=== PATIENT | male | born 1955 | race Caucasian/White ===

== ENCOUNTER 2017-02-08 10:25 | Inpatient (IN) | payer OTHER ==
[~2017-02-08] VITALS: Ht 175.3 cm; Wt 94.7 kg
--- NOTE | ~2017-02-08 | OR ---
PATIENT'S NAME: RIZWANA CUNNINGHAM [facility] AGE: 61 Y [address] ROOM: [place] [address] LOCATION: GPCU ADMIT DATE: 02/08/2017 OR/Procedure Report DISCHARGE DATE: FAMILY PHYSICIAN: PHYSICIAN, UNKNOWN ATTENDING PHYSICIAN: ANJUM WYNNE SURGEON: Vickey Teran MD ROBOT PROGRAMMER: DATE OF PROCEDURE: 02/08/2017 PROCEDURES: 1. Insertion of central venous catheter. 2. Insertion of an arterial line. DESCRIPTION OF PROCEDURE: After a brief time-out was completed verifying the correct patient, procedure, and site, the patient was placed in dependent position appropriate for central line placement. The patient's right neck was prepped and draped in the usual sterile fashion. 1 mL of 1% lidocaine was used to anesthetize the surrounding skin. Using the Seldinger technique and under real-time ultrasound guidance, a 9-Upper Sorbian 10 cm catheter was introduced into the internal jugular vein. The guidewire then was removed. Each lumen of the catheter was evacuated from air and then flushed with sterile saline. The catheter then was sutured into place and a sterile Tegaderm was applied. The patient tolerated the procedure well. There were no procedural complications. Next, the patient's left wrist prepped and draped in the usual sterile fashion. 1 mL of 1% lidocaine used to anesthetize the surrounding skin. Using a 20-gauge Arrow catheter used to find the left radial artery. Catheter was then floated over the guidewire. The guidewire then was removed. A pulsatile waveform then was ensued on the monitor. Catheter then was sutured into place and a Tegaderm then was applied. Pulses distal to the insertion of the catheter were checked and found to be adequate. The patient tolerated the procedure well. There were no procedural complications. MD JAYANT MACIEL/kashmirl /[id number] d: 02/13/171939 t: 02/21/171706, OPERATIVE SUMMARY
--- NOTE | ~2017-02-08 | CATH ---
Cardiac Diagnostic Report Demographics Patient Name OCTAVIO GREGORIO Gender Male Date of 1955 Age 61 year(s) Patient Number [id number] Date of Study 02/08/2017 Visit Number [id number] Room Number G6[address] [place] [id number] Ht 177.8 cm Wt 81.65 kg Referring [facility] Primary Physician Physician Michelle CABRAL Performing [facility] Secondary Physician Physician Michelle CABRAL Diagnostic [facility] Assisting Physician Physician Michelle CABRAL Interventional Physician Employment Advisor Physician Findings and Conclusions Diagnostic Findings and Conclusion 1. Obstructive triple vessel CAD, calcified vessels a. Prox RCA 80%, mid RCA aneurysmal, Mid RCA 90%. b. proximal Cx, grade 4 thrombus causing 90% stenosis with MARQUEZ III flow OM 1 small vessel, ostium 90%, mid 95%, distal OM after aneurysmal distal Cx segment has focal 80% stenosis. c. Small LAD system, appears completely occluded in the distal portion, Diag 1 and Diag 2 are diffusely diseased with 90% stenosis proximally. At the end of the procedure patient reported he did not have any chest pain. Diagnostic Recommendations CT Surgery consult to see if we can do CABG today, given STEMI presentation. Pt is hemodynamically stable. continue heparin, ntg drip. Start integrillin drip no bolus. Admit to ICU while waiting for CABG. Stat Echo, carotids and vein mapping. Procedure Description The patient was brought to the diagnostic cardiac catheterization-EP laboratory by emergency personal. Physician deemed procedure as EMERGENT. The planned puncture-incision site(s) were shaved and prepped with ChloraPrep and draped in the usual sterile manner. Conscious sedation, supplemental oxygen, and pain control medications were delivered by a registered nurse under physician guidance. Surface ECG rhythm, blood pressure measurement, and pulse oximetry were monitored throughout the procedure. Arterial access. The access site was infiltrated with lidocaine. The vessel was entered with the Seldinger technique. A sheath was advanced into the vessel and used for catheter placement. Selective right coronary angiography. A catheter was advanced into the right coronary vessel ostium under fluoroscopic guidance. Contrast was injected by hand. Images were obtained in multiple projections. Selective left coronary angiography. A catheter was advanced into the left coronary vessel ostium under Fluoroscopic guidance. Contrast was injected by hand. Images were obtained in multiple projections. Arterial artery hemostasis was achieved. The patient was transferred to a regular nursing floor via cart accompanied by a nurse. The patient left the laboratory in stable condition. Diagnostic Cath Status: Emergency Procedure Procedure Type Diagnostic procedure:Angiography:, Coronary Angios Indications: Acute IL. Angiographic Findings Dominance: Right Cardiac Arteries and Lesion Findings LMCA: Normal (0% Stenosis). LAD: Small LAD system, appears completely occluded in the distal portion, Diag 1 and Diag 2 are diffusely diseased with 90% stenosis proximally. Lesion on 1st Diag: Proximal subsection.80% stenosis .Bifurcation lesion. Lesion on 2nd Diag: Proximal subsection.80% stenosis .Bifurcation lesion. Lesion on Mid LAD: Mid subsection.80% stenosis . Lesion on Prox LAD: Ostial.90% stenosis . LCx: proximal Cx, grade 4 thrombus causing 90% stenosis with MARQUEZ III flow OM 1 small vessel, ostium 90%, mid 95% Distal OM after aneurysmal segment has 80% focal stenosis. Lesion on Prox CX: Proximal subsection.90% stenosis .Culprit lesion. Lesion on Prox CX: Mid subsection.30% stenosis . RCA: Lesion on Prox RCA: Ostial.80% stenosis . Lesion on Mid RCA: Mid subsection.90% stenosis . Coronary Tree Procedure Data Procedure Date Date: 02/08/2017Start: 11:14 AMEnd: 12:29 PM Entry Locations - Retrograde Percutaneous access was performed through the Right Radial artery (Primary location). A 6 Fr sheath was inserted. Hemostasis was successfully obtained using Mechanical Compression. Closure Comments: R Namrata - 12mL's by Luz Lauren. Procedure Medications Order and Administration + + + + + !Time !Medication !Dosage !Route ! + + + + + !02/08/2017 11:13 AM !Versed !1 mg !I.V. ! + + + + + !02/08/2017 11:14 AM !Fentanyl !50 mcg !I.V. ! + + + + + !02/08/2017 11:14 AM !Heparin (ACC_3) ! !I.V. drip ! + + + + + !02/08/2017 11:18 AM !Radial Verapamil !2.5 mg !I.A. ! + + + + + !02/08/2017 11:25 AM !Heparin (ACC_3) !3000 units !I.V. bolus ! + + + + + !02/08/2017 11:26 AM !Heparin (ACC_3) !1000 units/hr !I.V. drip ! + + + + + !02/08/2017 11:26 AM !0.9% NaCl !100 ml/hr !I.V. drip ! + + + + + !02/08/2017 11:30 AM !Nitroglycerin !20 mcg/min !I.V. drip ! + + + + + !02/08/2017 11:49 AM !Nitroglycerin !30 mcg/min !I.V. drip ! + + + + + Devices Used - A5 Fr. BS JR 4 Diag. Catheterwas used for:Right coronary angiography. - A6 Fr. EBU 3.5 Guide Catheterwas used for:Left coronary angiography. - A5 Fr. BS Angled Pigtail Diag. Catheterwas used for:LV Pressures.Unable to cannulate the vessel. Contrast Material - Isovue 15306 ml Fluoroscopy Time: Diagnostic: 5:54 minutes. Total: 5:54 minutes. Fluoroscopy Dose: Diagnostic: 931 mGy. Total: 931 mGy. Estimated Blood Loss: 10 ml. Medical History Performed Procedures and Imaging Results - No ACC stress or imaging studies were performed. Allergies - No known allergies. Risk Factors The patient risk factors include:hypertension, last creatinine: 0.8 mg/dl, creatinine clearance: 113.4 ml/min and Current/Recent(w/in 1 year) tobacco use. Admission Data Admission Date: 02/08/2017 Admission Time: 11:00 AM Admit Source: [facility] Insurance Payors: None. Admission Medications + +------+-----+---------+---------+ + + !Medication !Dosage!Times!Last !Last !Administered !Comments ! ! ! !Per !Delivery !Delivery ! ! ! ! ! !Day !Date !Time ! ! ! + +------+-----+---------+---------+ + + !Unfractionated ! ! ! ! !Yes ! ! !Heparin (any) ! ! ! ! ! ! ! + +------+-----+---------+---------+ + + !Aspirin (any) ! ! ! ! !Yes ! ! + +------+-----+---------+---------+ + + Clinical Evaluation Leading to Procedure - The patient's CAD presentation was assessed as: STEMI.The symptom onset was first noted on 02/08/2017 09:00 AM(time was estimated). - The patient's anginal syndrome during the past two weeks was assessed as: Class IV according to the [place] Cardiovascular Society Classification System (CCS). Hemodynamics Condition: Rest O2 Consumption: Estimated: 218.99Heart Rate: 49 bpm Pressures (mmHg) +-----+ + !Site !Pressure ! +-----+ + !AO !163/88 (120) ! +-----+ + Shunts Oxygen Values O2 Capacity 204 O2 Consumption 218.99 Signatures dtt: MICHELLE WYNNE dtd: 02/08/17 1114 Physician Self Edit
--- NOTE | ~2017-02-08 | HP ---
[facility] AGE: 61 Y [address] ROOM: [address] [place] [id number] LOCATION: [facility] ADMIT DATE: 02/08/2017 History & Physical DISCHARGE DATE: FAMILY PHYSICIAN: PHYSICIAN, UNKNOWN ATTENDING PHYSICIAN: MICHELLE WYNNE DATE OF SERVICE: HISTORY OF PRESENT ILLNESS: This is a 61-year-old male who experienced burning chest pain followed by intense increasing chest pain and chest pressure while at work this morning. He also had nausea and vomiting, and his coworkers described him as pale and diaphoretic. Due to these symptoms, he was taken emergently to the [facility] where he was found to be having an ST-elevation myocardial infarction per EKG evaluation. The patient was then subsequently transferred to [facility] for higher level of care and planned emergent transfer to the catheterization suite by Dr. Michelle Wynne for heart catheterization. At the time of this dictation, the patient is currently post catheterization and is in need of a coronary artery bypass grafting due to triple-vessel disease. Full review of the patient's history shows that he has been having increased complaints of heartburn type chest pressure over the last few months. He has also had increased complaints of fatigue and dyspnea on exertion. His past medical history includes hypertension, which he follows a primary care provider in [place] for. He denies any other medical history and states his blood pressure is controlled with a blood pressure pill and a water pill. No noted family history of heart disease other than his mother needing a defibrillator. At the time of this dictation, he is resting comfortably in bed on heparin drip and nitroglycerin and has very mild complaints of chest pain. He is undergoing imaging for pre- CABG evaluation. PAST MEDICAL HISTORY: As listed in the HPI as well as including hypertension and heartburn. PAST SURGICAL HISTORY: 1. Appendectomy. 2. Right rotator cuff repair. 3. Vasectomy. 4. Tonsillectomy. 5. Umbilical hernia repair. FAMILY HISTORY: The patient's mother had diabetes. He is unsure of his father's health history, but he is still alive at the age of 90. [facility] 61 Y [address] ROOM: [address] [place], [place] [address] LOCATION: [facility] ADMIT DATE: 02/08/2017 History & Physical DISCHARGE DATE: FAMILY PHYSICIAN: PHYSICIAN, UNKNOWN ATTENDING PHYSICIAN: MICHELLE WYNNE SOCIAL HISTORY: The patient is a current daily smoker. He has smoked 1 pack per day for the last 48 years. He also admits to alcohol use throughout the week and states "drinks increased if I had a bad day at work." He denies illicit drug use. HOME MEDICATIONS: Currently being compiled by nursing staff by checking with pharmacies. The patient states he takes a "blood pressure pill and a water pill." MEDICATION ALLERGIES: No known medication allergies. REVIEW OF SYSTEMS: Pertinent positive review of systems are listed in the HPI. All other review of systems evaluated and negative. He denies recent illness or fever or chills. He also denies headache, changes in vision, or changes in bowel or bladder patterns. PHYSICAL EXAMINATION: VITAL SIGNS: Afebrile. Pulse 62, respirations 16, blood pressure 151/93, and O2 saturation 97% on 2 L nasal cannula. The patient weighs 98.2 kg. SKIN: [place], warm, and dry. EYES: Sclerae clear. No xanthelasmas. ENT: Oral mucosa is pink and moist. No jugular venous distention or carotid bruits. CHEST: Respirations are even and unlabored. LUNGS: Clear to auscultation. HEART: Regular rate and rhythm. Normal S1 and S2. ABDOMEN: Soft and nontender. MUSCULOSKELETAL: Equal muscle strength to upper and lower extremities bilaterally against resistance. EXTREMITIES: Peripheral pulses palpable. No clubbing, cyanosis, or edema. PSYCHIATRIC: Alert and oriented. Mood and affect are appropriate. IMPRESSION AND PLAN: Per Dr. Michelle Wynne: 1. Acute inferior and anterior ST-elevation myocardial infarction. 2. Triple-vessel disease. 3. Proximal circumflex 90%, ostial right coronary artery 80%, mid right coronary artery 90% and aneurysmal, and normal left main with a diagonal 1 of 80% and a diagonal 2 of 80%. Proximal circumflex of 30%. Mid left anterior descending 80%, small left anterior descending. Overall aneurysmal right coronary artery and circumflex with ST-elevation myocardial infarction culprit being circumflex artery. There was also notation of calcified vessels. PATIENT'S NAME: RIZWANA CUNNINGHAM [facility] AGE: 61 Y [address] ROOM: G6[facility] [place], [place] [address] LOCATION: [facility] ADMIT DATE: 02/08/2017 History & Physical DISCHARGE DATE: FAMILY PHYSICIAN: PHYSICIAN, UNKNOWN ATTENDING PHYSICIAN: MICHELLE WYNNE 4. We will emergently consult Cardiothoracic Surgery and hopefully be able to undergo coronary artery bypass grafting today. We will do preoperative evaluation with an echocardiogram to fully evaluate ejection fraction as well as look for wall motion or valvular abnormalities. We will check carotids and vein mapping as well as typing and crossing the patient for blood. We will also consult the Hospitalist Service to assist with medical management. We will continue to monitor, evaluate, and treat as appropriate. Thank you for allowing [facility] to interact in the care of this patient. SARA KILLIAN APRN FOR MD SAMAN JOHNSON/noy /[id number] D: 511 T: 515 HISTORY & PHYSICAL
--- NOTE | ~2017-02-08 | ENPV ---
Vascular Lower Extremity Vein Mapping Procedure Demographics Patient Name RIZWANA CUNNINGHAM Date of Study 02/08/2017 Patient Number [id number] Gender Male Date of 1955 Age 61 Visit Number [id number] Height 70 Accession Number [id number] Weight 180 Referring Kurt Lebron DO Interpreting Jose L Abrams MD Physician Physician Physician Ordering Kurt Lebron Wood Craftsman Physician DO Imposer Velasquez Jain RVT Elytoby Ibarrae RDCS, RVT Conclusions Summary Adequate veins bilaterally. Procedure Type of Study: Veins:Lower Extremity Vein Mapping, Vein Mapping. Indications for Study:Pre-op CABG. Allergies - No known allergies. Patient Status:Routine. Study Location:Inpatient Portable. Technical Quality:Adequate visualization. Risk Factors - The patient's risk factor(s) include: arterial hypertension. - The patient has a current/recent (within 1 year) tobacco history. - The patient's last creatinine was 0.8 mg/dl. Velocities are measured in cm/s ; Diameters are measured in cm + ++--------++--------+ !Superficial - Great Saphenous Vein !!Right !!Left ! + ++--------++--------+ !Location !!Diameter!!Diameter! + ++--------++--------+ !GSV High Thigh !!0.37 !!0.64 ! + ++--------++--------+ !GSV Mid Thigh !!0.32 !!0.41 ! + ++--------++--------+ !GSV Low Thigh !!0.3 !!0.31 ! + ++--------++--------+ !GSV Knee !!0.24 !!0.29 ! + ++--------++--------+ !GSV High Calf !!0.21 !!0.26 ! + ++--------++--------+ !GSV Mid Calf !!0.18 !!0.23 ! + ++--------++--------+ !GSV Low Calf !!0.23 !!0.26 ! + ++--------++--------+ !GSV Ankle !!0.23 !!0.17 ! + ++--------++--------+ Signature dtt: SHAILESH RICHEY dtd: 02/08/17 1413 Physician Self Edit
--- NOTE | ~2017-02-08 | DS ---
PATIENT'S NAME: RIZWANA CUNNINGHAM [facility] AGE: 61 Y [address] ROOM: [address] [place], [place] [address] LOCATION: GPCU ADMIT DATE: 02/08/2017 Discharge Summary DISCHARGE DATE: 02/14/2017 FAMILY PHYSICIAN: Physician, Unknown ATTENDING PHYSICIAN: Michelle Lee HISTORY OF PRESENT ILLNESS AND HOSPITAL COURSE: The patient is a 61-year-old, white male, whom on 02/08/2017 presented to the [place] [facility] as a delayed presentation after having chest pain, nearly all day long. Friends finely encourage him. Once at the [facility], he was ruled as a STEMI and transferred to [facility] for a higher level of care and for emergent cardiac catheterization secondary to ongoing chest pain. The patient was seen by Dr. Lee with findings of acute inferior and anterior ST elevation myocardial infarction, triple-vessel disease, consisting of a proximal circumflex at 90%, ostial right coronary artery at 80%, and mid right coronary artery occlusion at 90% which was also an aneurysmal and a diagonal #1 of 80%, a second diagonal of 80%, and a mid left anterior descending artery at 80%. The patient continued to have chest pain following the cardiac catheterization procedure. He went emergently to the OR with Dr. Boggs for surgical revascularization consisting of an emergent coronary artery bypass grafting x3 vessels with the left internal mammary artery bypass to the LAD, reverse saphenous vein graft to the posterior and descending artery, reverse saphenous vein graft to the obtuse marginal #3, and a reverse saphenous vein graft sequential from OM #1 to OM #2. The patient tolerated the procedure without complication. Following the surgery, he was transferred to the ICU. He did extubate the following morning. He did have a couple of critical ABGs following surgery. Pain control was an issue initially for him. This was corrected. Shortly thereafter, he was extubated without complication. His electrolytes were corrected postoperatively. He was found stable to transfer to PCU on 02/10/2017. His mediastinal chest tubes and pacemaking wires were discontinued. His Carrasco was maintained for accurate I and O. Eventually, Carrasco was discontinued. The patient had no healing complications postoperatively. He worked with PT/OT for strengthening purposes. There was no postoperative atrial fibrillation. Pleural chest tubes were removed. There was no residual pneumothorax or fluid on the followup chest x-ray. The patient was found stable then to discharge to home on 02/13/2017. Care Management worked with the patient and his for their desires for care at the time of discharge. They did not care for any Home Health Care Services. DISCHARGE ORDERS: Include: A cardiac prudent diet. Activity levels as per the open heart surgery discharge summary sheet, which require no pulling, pushing, or lifting greater than 10 pounds for at least 6 weeks or until 03/22/2017. The patient may shower. He is to work with cardiac rehabilitation for outpatient therapy within a couple of weeks' time. He is to follow up with Dr. Michelle Lee in 2 weeks as well as Dr. Boggs in PATIENT'S NAME: RIZWANA CUNNINGHAM [facility] AGE: 61 Y [address] ROOM: [place] [address] [facility] AD[facility] DATE: 02/08/2017 Discharge Summary DISCHARGE DATE: 02/14/2017 FAMILY PHYSICIAN: Physician, Unknown ATTENDING PHYSICIAN: Michelle Lee 2 weeks. DISCHARGE MEDICATIONS: Include: 1. Hydrochlorothiazide 25 mg daily. 2. Lisinopril 5 mg b.i.d. 3. Multivitamin daily. 4. Amiodarone 400 mg twice a day for 3 days, and 200 mg of amiodarone twice daily thereafter until gone. 5. Aspirin 81 mg daily. 6. Lipitor 40 mg at bedtime. 7. Coreg 12.5 mg twice a day. 8. Plavix 75 mg daily. 9. Colace 100 mg twice a day. 10. Polyethylene glycol 17 g at bedtime. 11. Potassium chloride 30 mEq twice a day. 12. Douglas 5/325, 1 to 2 every 4-6 hours as needed. 13. Mucinex 1200 mg twice a day p.r.n. 14. Bumex 2 mg daily. CONDITION ON DISCHARGE: There was much discussion with regard to the discharge orders. The patient and verbalized understanding of the discharge orders. The patient was discharged to home in stable condition. LEXX LORENZO APRN FOR CONSUELO Vi BOGGS DO DLQ/modl /[id number] d: 03/05/17 1320 t: 03/05/17 1453, DISCHARGE SUMMARY
--- NOTE | ~2017-02-08 | OR ---
PATIENT'S NAME: RIZWANA SLATER [facility] AGE: 61 Y [address] ROOM: [address] [place], [place] [address] LOCATION: GPCU ADMIT DATE: 02/08/2017 OR/Procedure Report DISCHARGE DATE: FAMILY PHYSICIAN: PHYSICIAN, UNKNOWN ATTENDING PHYSICIAN: ANJUM WYNNE SURGEON: Felipe Hicks DO BREAKFAST HOSTESS: DATE OF PROCEDURE: 02/08/2017 PREOPERATIVE DIAGNOSIS: Status post code ST-segment elevation myocardial infarction with ongoing chest pain. POSTOPERATIVE DIAGNOSIS: Status post code ST-segment elevation myocardial infarction with ongoing chest pain. PROCEDURE PERFORMED: Emergent coronary artery bypass grafting x5 with left internal mammary artery bypass to the LAD, reverse saphenous vein graft to the posterior and descending artery, reverse saphenous vein graft obtuse marginal #3, reverse saphenous vein graft sequential from OM1 to OM2. BRIEF HISTORY: Mr. Slater is a 61-year-old white male, who admitted to the emergency department with an ST-segment elevation myocardial infarction and transferred emergently to [facility]. He was taken to the coronary labor relations consultant today and found to have severe multivessel coronary artery disease with ongoing chest pain. He has been brought to the operative suite in an emergent fashion for revascularization. Informed consent has been obtained through his as he has received sedation in the labor relations consultant. He is sterilely prepped and draped in usual fashion for sternotomy with lower extremity vein harvest. The sternal incision was made and the sternum was divided in the midline. Ostene and electrocautery were used for hemostasis along the narrow and sternal edges and concurrently to this, the saphenous vein was harvested endoscopically from the lower extremities. Hemodynamically, he was stable and we elected to harvest the internal mammary artery. It was identified and harvested utilizing surgical clips and electrocautery. Prior to its division, the patient was fully heparinized. The mammary was then divided and prepared for bypass. Mammary retractor was removed and a sternal retractor was placed. The pericardium was opened. Pericardial wall was created. Cannulation sutures placed in the ascending aorta and right atrium for bypass and cardioplegia cannulas. The patient was cannulated and connected to the bypass pump without difficulty. The vein was then prepared for bypass. Cardiopulmonary bypass was now initiated and a crossclamp applied. Cardioplegia was now initiated via the antegrade and then retrograde systems and topical cold saline will also be used. The heart arrested without difficulty and we identified the posterior lateral and posterior descending arteries. The posterior descending artery was opened and side vein graft PATIENT'S NAME: RIZWANA SLATER [facility] AGE: 61 Y [address] ROOM: [id number] [place], [place] [address] [facility] ADMIT DATE: 02/08/2017 OR/Procedure Report DISCHARGE DATE: FAMILY PHYSICIAN: PHYSICIAN, UNKNOWN ATTENDING PHYSICIAN: ANJUM WYNNE anastomosed to this with 7-0 Prolene in end-to-side fashion. It was sized appropriate and connected to the cardioplegia system. A 500 mL of vein graft retrograde cardioplegia were given and this was done after each venous distal anastomosis. Similar venous distal anastomosis were then created to the obtuse marginal #3 and then the obtuse marginal #2. The obtuse marginal #2 graft was then sequential to the obtuse marginal #1, and then the left internal mammary artery was anastomosed with the left anterior descending artery, again in end-to-side fashion with 7-0 Prolene. Once this was completed, the bulldogs removed from the anastomosis giving good distal flow. Crossclamp was removed and a partial occlusion clamp applied. Warm blood was now initiated via the vein grafts and the retrograde cannula and we performed our proximal anastomosis utilizing 4 mm punch and 6-0 Prolene and partial occlusion clamping. With these completed, the partial occlusion clamp was now removed, vein grafts de-aired, bulldog was removed, and distal flow given. Distal sites were hemostatic. Proximal sites were hemostatic and we removed the retrograde cannula, placed 2 atria and 1 ventricular temporary pacemaking wires, initiated ventilations, and then weaned from cardiopulmonary bypass without difficulty. The venous cannula was now removed. Appropriate volume returned from the pump to the patient. The ascending aortic cannula was now removed. Protamine was given. Then, we placed a 3 chest tubes, 1 left pleural, 1 posterior pericardial, 1 anterior mediastinal. We approximated the sternum with a ZipFix system, irrigated the soft tissues again and closed these in a layered fashion. All sponge, instrument, and needle counts were correct. The patient was transferred to the intensive care unit in stable condition. DO POLA ESCOBAR/noy /[id number] d: 02/13/17 1527 t: 02/14/17 0853, OPERATIVE SUMMARY
--- NOTE | ~2017-02-08 | CON ---
PATIENT'S NAME: RIZWANA CUNNINGHAM [facility] AGE: 61 Y [address] ROOM: [place] [address] LOCATION: [facility] ADMIT DATE: 02/08/2017 Consultation DISCHARGE DATE: FAMILY PHYSICIAN: PHYSICIAN, UNKNOWN ATTENDING PHYSICIAN: ANJUM WYNNE DATE OF CONSULTATION: 02/08/2017 REFERRING PHYSICIAN: Rodri David MD CONSULTATION NOTE CHIEF COMPLAINT/REASON FOR CONSULTATION: Chest pain. HISTORY OF PRESENT ILLNESS: A 61-year-old gentleman with a past medical history of essential hypertension as well as one pack per day life long smoking, presented to [facility] with chest pain which he described as burning in the chest, which started about 0900 hours this morning when he was lifting a 20 feet long pipe at work associated with severe diaphoresis, anxiety, and some shortness of breath. He never had this kind of symptoms before. On further inquiry, he denies having any PND, dyspnea, or orthopnea. He denied any dizziness, any trouble with the eyes, any trouble swallowing, any abdominal pain, constipation, diarrhea, or burning on urination. REVIEW OF SYSTEMS: All other systems reviewed and were negative except what is mentioned in the HPI. PAST MEDICAL HISTORY: 1. Essential hypertension. 2. Tobacco abuse. ALLERGIES: NO KNOWN DRUG ALLERGIES. MEDICATIONS: Please see MAR. FAMILY HISTORY: Family history is significant for diabetes in mother. SOCIAL HISTORY: One pack per day smoker since the age of 13. PATIENT'S NAME: RIZWANA CUNNINGHAM [facility] AGE: 61 Y [address] ROOM: [place] [address] LOCATION: [facility] ADMIT DATE: 02/08/2017 Consultation DISCHARGE DATE: FAMILY PHYSICIAN: PHYSICIAN, UNKNOWN ATTENDING PHYSICIAN: ANJUM WYNNE PHYSICAL EXAMINATION: VITAL SIGNS: 160/88, 72, 16, and afebrile. GENERAL: In no acute distress. Alert and oriented x3. HEENT: Head; atraumatic and normocephalic. Eyes; nonicteric. No pallor. Oropharynx; dry mucous membranes. CARDIOVASCULAR: S1 and S2. No murmurs, gallops, or rubs. LUNGS: Clear to auscultation bilaterally. ABDOMEN: Soft, nontender, and nondistended. Bowel sounds present. EXTREMITIES: No clubbing, cyanosis, or edema. PSYCHIATRIC: Normal affect, mood, and speech. NEUROLOGIC: Cranial nerves 2 through 12 intact. No motor or sensory deficits. MUSCULOSKELETAL: No muscle tenderness or swelling noted. IMAGING STUDIES: EKG at the [facility] was done which showed diffuse ST elevation in the anterior as well as inferior leads. His rest of the laboratory work which includes the CBC and a chemical panel were largely unremarkable. He was taken to the catheterization lab directly here at [facility] as a STEMI code. He was found to have severe multi-vessel disease and Cardiothoracic Surgery was consulted. ASSESSMENT AND PLAN: 1. ST-elevation myocardial infarction. 2. Coronary artery disease. 3. Essential hypertension. 4. Tobacco abuse. Plan: The patient is going to be seen by Cardiothoracic Surgery with the coronary artery bypass grafting to be done likely today. He is currently chest pain-free. Aspirin, beta rashi, and statin are managed by Cardiology. We will recommend getting a new lipid profile as well as Hb A1c. We will follow along this patient in the ICU with Cardiothoracic Surgery and Cardiology. Thank you for allowing us in taking care of this patient. MD CYNTHIA ISABEL/noy /[id number] d: 02/08/171928 t: 02/09/17 1705, CONSULTATION REPORT
[2017-02-08 13:57] LABS: BASOPHIL # 0.1 K/uL (0.0-0.2); BASOPHIL % 0.4 %; EOSINOPHIL % 0.3 %; HEMATOCRIT 40.8 % (37.0-53.0); HEMOGLOBIN 13.9 g/dL (11.0-16.0); IMMATURE GRANULOCYTE # 0.1 K/uL (0.0-0.3); IMMATURE GRANULOCYTE % 0.5 %; LYMPHOCYTE # 2.1 K/uL (0.8-4.0); LYMPHOCYTE % 17.6 %; MCH 32.4 pg (27.0-34.0); MCHC 34.1 gm/dL (32.0-36.5); MCV 95.1 fl (83.0-98.0); MONOCYTE # 0.6 K/uL (0.0-1.0); MONOCYTE % 4.8 %; MPV 9.7 fl (9.4-12.4); NEUTROPHIL # (ANC) 9.1 K/uL (1.4-9.0); NEUTROPHIL % 76.4 %; NRBC % 0 /100WBC (0-0.00); PLATELET COUNT 290 K/uL (150-450); RBC 4.29 M/uL (3.50-5.50); RDW-CV 12.2 % (11.9-14.6)
[2017-02-08 13:58] LABS: BICARBONATE 22.5 mmol/L (18.0-23.0); PCO2 37 mmHg (35-45); PO2 98 mmHg (80-90)
--- NOTE | 2017-02-08 14:02 | NUR ---
Patient is 61 yo male admitted this afternoon for chest pain, has been to manager lab and is admitted for surgery for CABG. patient is alert and oriented, very talkative. at bedside, states patient jokes a lot and doesn't always tell the truth. patient was at work this morning at [employer], he helped another co-worker move a piece of pipe that was about 20 feet long. he states he broke out into a sweat and his arms and legs got numb and giancarlo and he "couldn't get sat down fast enough". patient has IV infusing in right hand without erythema or edema noted at site. saline lock is noted in left forearm without erythema or edema noted at site. Education is given as documented. patient and family deny questions. pneumatics are not placed on patient at this time per OR nurse request. Advanced directive booklet given to patient and with instructions for use. deny questions at this time. Call light in reach. denies needs. phlebotomy technologist in at this time. report is given to MYNOR Guadarrama.
[2017-02-08 14:07] LABS: PROTIME 10.1 SECONDS (9.6-11.1); PTT 49 SECONDS (25-32)
[2017-02-08 14:14] LABS: ALBUMIN 3.5 gm/dL (3.5-5.0); ALK PHOS 96 IU/L (33-138); ALT 29 IU/L (12-78); AST 31 IU/L (10-40); BLOOD UREA NITROGEN 18 mg/dL (6-24); CALCIUM 8.4 mg/dL (8.5-10.5); CHLORIDE 107 mMol/L (96-110); CO2 23 mMol/L (22-32); CREATININE 0.7 mg/dL (0.6-1.3); ESTIMATED GFR (MDRD EQUATION) > 60; SODIUM 141 mMol/L (135-145); TOTAL BILIRUBIN 0.5 mg/dL (0.0-1.5); TOTAL PROTEIN 6.9 g/dL (6.0-8.4)
[2017-02-08] MEDS ORDERED: HYDRODIURIL25 MG PO (14:22)
[2017-02-08] MEDS ORDERED: PRINIVIL (ZESTRI5 MG PO (14:22)
[2017-02-08] MEDS ORDERED: TYLENOL EXTRA500 MG PO (14:23)
[2017-02-08] MEDS ORDERED: MULTIPLE VITAM1 EACH PO (14:23)
--- NOTE | 2017-02-08 16:10 | NUR ---
Significant Event: PT ADMITTED TO THE FLOOR AT 1230 FROM SAP BUSINESS ANALYST FOR A CODE STEMI. 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 HE WAS TAKEN TO THE [facility], WHICH THE WORK-UP SHOWED AN ACUTE ID. PT WAS TAKEN DIRECTLY TO SAP BUSINESS ANALYST HERE AT [facility]. MEDICAL HX: HYPERTENSION, DAILY SMOKER, OCCASIONAL ETOH USE DURING THE WEEK. PT IS ALERT AND ORIENTED X3; VERY TALKATIVE. NEURO CHECKS INTACT. PT ARRIVED TO THE FLOOR ON AN IV NITRO DRIP. SBP GOAL TO KEEP BETWEEN 120-140. R-BAND INTACT TO R)ARM. IV TO L)INNER FA INTACT. IV HEPARIN DRIP D/C'D AT 1400 PER ORDER. NS INFUSING AT 100 ML/HR. NO SKIN ISSUES. NO COMPLAINTS OF CHEST PAIN OR NAUSEA. MRSA SWAB SENT TO LAB THIS AFTERNOON. CAROTIDS AND VEIN MAPPING DONE. PT WAS TAKEN TO SURGERY AT 1450 PER SURGERY NURSES VIA BED FOR A CABG. Follow up: POST-OP ORDERS TONIGHT.
[2017-02-08 21:26] LABS: HEMOGLOBIN 10.6 g/dL (11.0-16.0); MCH 32.8 pg (27.0-34.0); MCV 97.5 fl (83.0-98.0); MPV 9.7 fl (9.4-12.4); RBC 3.23 M/uL (3.50-5.50); RDW-CV 12.4 % (11.9-14.6)
[2017-02-08 21:29] LABS: HEMATOCRIT 31.5 % (37.0-53.0); MCHC 33.7 gm/dL (32.0-36.5); PLATELET COUNT 150 K/uL (150-450)
[2017-02-08 21:36] LABS: INR - (THERAPEUTIC) 1.2 (0.9-1.1)
[2017-02-08 21:38] LABS: PTT 29 SECONDS (25-32)
[2017-02-08 21:39] LABS: PROTIME 12.5 SECONDS (9.6-11.1)
[2017-02-08 21:47] LABS: BICARBONATE 25.4 mmol/L (18.0-23.0); PCO2 44 mmHg (35-45); PO2 381 mmHg (80-90); POTASSIUM 3.6 mEq/L (3.7-5.1); SODIUM 137 mEq/L (135-145)
[2017-02-08 21:49] LABS: BICARBONATE 28.3 mmol/L (18.0-23.0); PCO2 49 mmHg (35-45); PO2 310 mmHg (80-90)
[2017-02-08 21:50] LABS: POTASSIUM 4.1 mEq/L (3.7-5.1); SODIUM 132 mEq/L (135-145)
[2017-02-08 21:52] LABS: PCO2 46 mmHg (35-45); PO2 241 mmHg (80-90)
[2017-02-08 21:53] LABS: POTASSIUM 4.8 mEq/L (3.7-5.1); SODIUM 136 mEq/L (135-145)
[2017-02-08 21:55] LABS: BICARBONATE 23.8 mmol/L (18.0-23.0); PCO2 50 mmHg (35-45); PO2 331 mmHg (80-90)
[2017-02-08 21:56] LABS: POTASSIUM 3.4 mEq/L (3.7-5.1); SODIUM 138 mEq/L (135-145)
[2017-02-08 22:16] LABS: ALPHA ANGLE 71 degrees; CLOT FORMATION TIME 96 seconds; CLOTTING TIME 184 seconds; MAXIMUM CLOT FIRMNESS 55 mm; MAXIMUM LYSIS 0 %
[2017-02-08 22:17] LABS: ALPHA ANGLE 72 degrees (70-81); CLOTTING TIME 98 seconds (43-82); MAXIMUM CLOT FIRMNESS 57 mm (51-72)
[2017-02-08 22:30] LABS: BICARBONATE 24.4 mmol/L (18.0-23.0); PCO2 57 mmHg (35-45); PO2 71 mmHg (80-90)
[2017-02-08 22:43] LABS: ANION GAP 16.8 (10.0-19.0); BLOOD UREA NITROGEN 15 mg/dL (6-24); CALCIUM 7.9 mg/dL (8.5-10.5); CHLORIDE 108 mMol/L (96-110); CO2 23 mMol/L (22-32); ESTIMATED GFR (MDRD EQUATION) > 60; POTASSIUM 4.8 mMol/L (3.7-5.1); SODIUM 143 mMol/L (135-145)
--- NOTE | 2017-02-09 00:21 | NUR ---
Patient extubated at 23:44. Vital capacity was 650ml, NIF was -40, RSBI was 33.8
[2017-02-09 01:29] LABS: BICARBONATE 24.3 mmol/L (18.0-23.0)
[2017-02-09 01:33] LABS: PCO2 86 mmHg (35-45); PO2 159 mmHg (80-90)
[2017-02-09 01:57] LABS: HEMATOCRIT 37.8 % (37.0-53.0); HEMOGLOBIN 12.5 g/dL (11.0-16.0)
[2017-02-09 02:59] LABS: BICARBONATE 25.6 mmol/L (18.0-23.0); PCO2 52 mmHg (35-45); PO2 83 mmHg (80-90)
[2017-02-09 03:06] LABS: HEMATOCRIT 33.5 % (37.0-53.0); HEMOGLOBIN 11.2 g/dL (11.0-16.0); MCH 32.8 pg (27.0-34.0); MCHC 33.4 gm/dL (32.0-36.5); MCV 98.2 fl (83.0-98.0); MPV 10.2 fl (9.4-12.4); RBC 3.41 M/uL (3.50-5.50); RDW-CV 12.9 % (11.9-14.6)
[2017-02-09 03:08] LABS: WBC 19.9 K/uL (4.0-11.0)
[2017-02-09 03:11] LABS: ANION GAP 17.2 (10.0-19.0); BLOOD UREA NITROGEN 16 mg/dL (6-24); CALCIUM 7.8 mg/dL (8.5-10.5); CHLORIDE 108 mMol/L (96-110); CO2 23 mMol/L (22-32); CREATININE 1.1 mg/dL (0.6-1.3); ESTIMATED GFR (MDRD EQUATION) > 60; POTASSIUM 4.2 mMol/L (3.7-5.1); SODIUM 144 mMol/L (135-145)
--- NOTE | 2017-02-09 04:50 | NUR ---
Patient coded around 0110, therefore the patient was reintubated with an 8.0 ETT and was secured 27cm at the lip with an ETAD. Vent settings currently are A/C 16, VT 600, P5. FiO2 currently at 40% for O2 sats of 99-100%. ETCO2 was 38-44. Breathsound slightly coarse throughout bilaterally. Suctioning small amounts of thick white secretion. Will continue to monitor patient.
--- NOTE | 2017-02-09 04:54 | NUR ---
pt comes out from OR intubated, no sedation, on amiodarone, bicarbonate,and NS. Insulin started per protocol. Pt given 1 amp of calcium chloride on arrival. Pt started on cardene for high pressures. Morphine is given for pain. Pt was extubated at 2345....pt is restless, reporting his pain is a 10 ot of 10...crying out in pain loudly...morphine is noted to be ineffective...pt is given toradol and started on a dilaudid otr company driver. Pt becomes comfortable but loses respiratory drive and airway...airway is held open...pt started on bipap but continues not to have a respiratory drive...pt is bagged...pt loses his rhythm..sats drop to 17% ..compressions started..pt reintubated...2 amps of epi are given during cpr...pt regains own rhythm...pt is given norcuron per Dr Hicks who is at bedside. Family arrives at bedside and is updated. OG is placed and pt given norco for pain. Pt awakens at 0300, follows commands and opens eyes. Pt nodds that he is in pain. dilaudid otr company driver is restarted. pt given 20 meq of kcl this am and 1 amp of calcuim chloride. pt is stable at this time vent on 40%. pt is given 1000 ml of 5% albumin for hypotension. currently pressures are in the 110's at this time. (post code pt's pco2 is critical at 86 and ph is 7.06
--- NOTE | 2017-02-09 09:51 | NUR ---
REC OSMOLITE 1.5 @ 60 ML/HR TO MEET NUTRIENT NEEDS.
[2017-02-09 11:12] LABS: BILIRUBIN URINE NEGATIVE (NEGATIVE); BLOOD URINE 50 /UL (NEGATIVE); COLOR URINE YELLOW (YELLOW); GLUCOSE URINE NEGATIVE (NEGATIVE); KETONE URINE 15 mg/dL (NEGATIVE); LEUKOCYTES URINE NEGATIVE /UL (NEGATIVE); NITRITE URINE NEGATIVE (NEGATIVE); PROTEIN URINE 30 mg/dL (NEGATIVE); SPEC GRAVITY URINE 1.025 (1.003-1.035); TURBIDITY URINE CLEAR (CLEAR); UROBILINOGEN URINE NORMAL (NORMAL)
[2017-02-09 11:15] LABS: BACTERIA URINE NEGATIVE (NEGATIVE); EPITHELIAL URINE NEGATIVE #/HPF (NEGATIVE); RBC URINE 20-50 #/HPF (NEGATIVE); WBC URINE NEGATIVE #/HPF (NEGATIVE)
--- NOTE | 2017-02-09 16:42 | NUR ---
Significant Event: CPAP trial done this AM, and extubated at 1243. Vital signs stable. Pain controlled with dilaudid GYROSCOPIC INSTRUMENT MECHANIC demand dose only. Alert and oriented. Drinking water without difficulty. Up to chair this afternoon. Family present most of the day. Denies additional needs. Follow up: continue
--- NOTE | 2017-02-09 17:08 | NUR ---
PT ON 4L NC SATS 92-96%, BREATH SOUNDS SOME FINE RALES IN THE BASES, PT WAS EXTUBATED AROUND 1243 TODAY, PT HAD A NIF -53, WILL CONTINUE WITH BREATHING TREATMENTS AND WORK ON PULMONARY TOILET
[2017-02-10 03:06] LABS: ALBUMIN 3.1 gm/dL (3.5-5.0); ANION GAP 12.5 (10.0-19.0); BLOOD UREA NITROGEN 14 mg/dL (6-24); CHLORIDE 105 mMol/L (96-110); CO2 27 mMol/L (22-32); CREATININE 0.9 mg/dL (0.6-1.3); ESTIMATED GFR (MDRD EQUATION) > 60; MAGNESIUM 1.8 mg/dL (1.3-2.6); POTASSIUM 3.5 mMol/L (3.7-5.1); SODIUM 141 mMol/L (135-145)
[2017-02-10 03:13] LABS: CALCIUM 7.1 mg/dL (8.5-10.5); PHOSPHORUS 1.7 mg/dL (2.5-4.9)
[2017-02-10 03:15] LABS: BASOPHIL % 0.2 %; HEMOGLOBIN 8.3 g/dL (11.0-16.0); IMMATURE GRANULOCYTE # 0.1 K/uL (0.0-0.3); IMMATURE GRANULOCYTE % 0.4 %; LYMPHOCYTE # 1.9 K/uL (0.8-4.0); LYMPHOCYTE % 13.1 %; MCHC 33.5 gm/dL (32.0-36.5); MCV 99.2 fl (83.0-98.0); MONOCYTE # 1.2 K/uL (0.0-1.0); MPV 10.5 fl (9.4-12.4); NEUTROPHIL # (ANC) 11.4 K/uL (1.4-9.0); NEUTROPHIL % 78.3 %; NRBC % 0 /100WBC (0-0.00); PLATELET COUNT 151 K/uL (150-450); RDW-CV 12.8 % (11.9-14.6); WBC 14.5 K/uL (4.0-11.0)
[2017-02-10 03:19] LABS: HEMATOCRIT 24.8 % (37.0-53.0); MCH 33.2 pg (27.0-34.0)
--- NOTE | 2017-02-10 07:15 | NUR ---
as evening progressed, the Pt became anxious and restless. o2 sats dropped as low as 60%. pt changed to bipap and oxygen was titrated to 100%. 40 mg lasix was given x 2 for low uop. Pt assisted to bed. Pt was lethargic thru the night, making grunting noises, but denied pain. pt was given 2000 mg calcium chloride for a calcium level of 7.1, 40 meq potassium chloride for a K+ level of 3.5. 1 gram of magnesium for a mg level of 1.8. The arterial line was dc'd. pt ran hypertensive and cardene was titrated to 15 mg/h and nitroglycerin was titrated up to 75 mcg/min to keep sbp < 140. Pt was moved to Room 6213 d/t problems with the call light. Pt remains on insulin and dilaudid panel assembler only. chest tubes x [address] epicardial pacer wires intact
[2017-02-10 11:58] LABS: MAGNESIUM 1.9 mg/dL (1.3-2.6); POTASSIUM 4.3 mMol/L (3.7-5.1)
--- NOTE | 2017-02-10 18:58 | NUR ---
Significant Event: Continued on BiPAP throughout the day. Was able to stand for transfer to chair. Cardene and Nitroglycerin weaned off keeping SBP<150. Pain controlled with Dilaudid BRAID FOLDER. Other vital signs stable. Has been confused and disoriented late this afternoon. Family present most of the day. Follow up: continue
--- NOTE | 2017-02-11 05:26 | NUR ---
Significant Event: No significant events. Pt more alert. Oriented x3. COntinues on BIPAP, fio2 weaned to 30%, pt sats 90-92%. Decreased usage of Dilaudid SUPERVISOR IRRIGATION. [place] given po for pain control with noted relief. New PIV started to L)hand. SBP stable, no htn noted. Follow up: Change status today?
[2017-02-11 07:38] LABS: HEMATOCRIT 26.2 % (37.0-53.0); HEMOGLOBIN 8.7 g/dL (11.0-16.0); MCH 32.5 pg (27.0-34.0); MCHC 33.2 gm/dL (32.0-36.5); MCV 97.8 fl (83.0-98.0); RBC 2.68 M/uL (3.50-5.50); RDW-CV 12.9 % (11.9-14.6); WBC 15.9 K/uL (4.0-11.0)
[2017-02-11 07:56] LABS: ANION GAP 10.4 (10.0-19.0); BLOOD UREA NITROGEN 15 mg/dL (6-24); CHLORIDE 98 mMol/L (96-110); CO2 32 mMol/L (22-32); CREATININE 0.7 mg/dL (0.6-1.3); ESTIMATED GFR (MDRD EQUATION) > 60; POTASSIUM 3.4 mMol/L (3.7-5.1); SODIUM 137 mMol/L (135-145)
[2017-02-11 08:55] LABS: BILIRUBIN URINE NEGATIVE (NEGATIVE); BLOOD URINE 50 /UL (NEGATIVE); COLOR URINE YELLOW (YELLOW); GLUCOSE URINE NEGATIVE (NEGATIVE); KETONE URINE 5 mg/dL (NEGATIVE); LEUKOCYTES URINE NEGATIVE /UL (NEGATIVE); NITRITE URINE NEGATIVE (NEGATIVE); PROTEIN URINE 15 mg/dL (NEGATIVE); SPEC GRAVITY URINE 1.015 (1.003-1.035); TURBIDITY URINE CLEAR (CLEAR); UROBILINOGEN URINE NORMAL (NORMAL)
[2017-02-11 09:04] LABS: AMORPHOUS URINE 2+ (NEGATIVE); BACTERIA URINE FEW (NEGATIVE); EPITHELIAL URINE RARE #/HPF (NEGATIVE); MUCUS URINE 1+ (NEGATIVE); WBC URINE RARE #/HPF (NEGATIVE)
--- NOTE | 2017-02-11 10:30 | NUR ---
Oriented x3, denies N/T. SR with occassional PACs, SBP 110-140s. On BiPap all night, did change to N/C this AM, lung sounds clear and diminished, weak but productive cough. Hypoactive BS, appetite good. [place] patent, UA with C&S sent down this AM d/t increased WBC and low-grade temp. Sternal incision JESSICA, edges approximated. [place] sites to L)leg with sutures intact JESSICA. Ambulates with 1 assist, denies dizziness upon standing. Refused pain medication this AM. Continue to remind patient of sternal precautions
--- NOTE | 2017-02-11 12:04 | NUR ---
Introduced self and CM role to Jose, his and his daughter who were all at bedside. Jose was living at home prior to this and is planning on returning there when he is able to do so. He was doing all of his own medications and says he will continue to do so. At this time, he denies any needs for DME/HHC when he returns back home. I left my name on his whiteboard for any questions he or family might have while he is here. No other questions, needs or concerns at this time. Will continue to follow and assist. Plan home.
[2017-02-11 15:23] LABS: POTASSIUM 5.5 mMol/L (3.7-5.1)
--- NOTE | 2017-02-11 17:13 | NUR ---
Significant Event: A/OX3, FORGETFUL AT TIMES. NO COMPLAINTS OF PAIN. CHEST INCISION IS OPEN TO AIR, CHEST TUBE SITE HAS DRESSING WHICH IS C/D/I, RYNE DRAIN INTACT HAD 120mL OUT. FAIRCHILD D/C'D AT 1615, HAD 750mL URINE OUT. SLIV TO L)HAND. VSS ON 4L PER NC. Follow up: CONTINUE WITH POC.
[2017-02-12 05:20] LABS: BASOPHIL % 0.2 %; EOSINOPHIL % 0.3 %; HEMATOCRIT 26.6 % (37.0-53.0); IMMATURE GRANULOCYTE # 0.1 K/uL (0.0-0.3); IMMATURE GRANULOCYTE % 0.6 %; LYMPHOCYTE # 1.7 K/uL (0.8-4.0); LYMPHOCYTE % 12.3 %; MCH 33.1 pg (27.0-34.0); MCHC 33.8 gm/dL (32.0-36.5); MCV 97.8 fl (83.0-98.0); MONOCYTE # 1.2 K/uL (0.0-1.0); MONOCYTE % 8.5 %; MPV 9.8 fl (9.4-12.4); NEUTROPHIL # (ANC) 10.9 K/uL (1.4-9.0); NEUTROPHIL % 78.1 %; NRBC % 0 /100WBC (0-0.00); RBC 2.72 M/uL (3.50-5.50); RDW-CV 12.7 % (11.9-14.6); WBC 13.9 K/uL (4.0-11.0)
[2017-02-12 05:30] LABS: PLATELET COUNT 233 K/uL (150-450)
[2017-02-12 05:32] LABS: ALBUMIN 2.9 gm/dL (3.5-5.0); ANION GAP 11.2 (10.0-19.0); BLOOD UREA NITROGEN 15 mg/dL (6-24); CALCIUM 7.9 mg/dL (8.5-10.5); CHLORIDE 99 mMol/L (96-110); CO2 29 mMol/L (22-32); CREATININE 0.8 mg/dL (0.6-1.3); ESTIMATED GFR (MDRD EQUATION) > 60; PHOSPHORUS 2.6 mg/dL (2.5-4.9); SODIUM 136 mMol/L (135-145)
[2017-02-12 05:33] LABS: POTASSIUM 3.2 mMol/L (3.7-5.1)
--- NOTE | 2017-02-12 06:35 | NUR ---
Significant Event: Patient is alert/oriented x3, but very forgetful and becomes confused at times. Impulsive and requires bed alarm on at all times. Vital signs have been stable. Down to 2L O2 now. Denies any pain. Sternal incision is open to air, edges approximated. Left leg harvest sites are sutured and open to air. Pleural bulb drain had 50 mL serosanguinous drainage. Patient did void 1855 mL plus 1 incontinent void. Follow up: Continue to monitor per plan of care.
--- NOTE | 2017-02-12 11:18 | NUR ---
PT MOVED TO NO RISK D/T GOOD ORAL INTAKE. CARDIAC DIET ED COMPLETED. WILL ASSIST NEEDED.
--- NOTE | 2017-02-12 19:44 | NUR ---
Significant Event: A/O X 3. COOPERATIVE WITH CARES. NEEDS REMINDED TO USE STERNAL PRECAUTIONS. AFEBRILE. HR SR IN 80'S. AT END OF SHIFT, PT. FLIPPING IN/OUT A-FLUTTER RATES 120-130'S. K+3.6 MG 2.5, REPLACED ORAL KCL. CONT. WITH PROD. COUGH, CLEAR THIN PHELGM. SURGICAL SITES APPROX. J/P 45ML OUT. VOIDING WITHOUT DIFFICULTY. TYLENOL GIVEN FOR PAIN CONTROL WITH RELIEF. Follow up: CONT. TO MONITER POST OPEN HEART.
--- NOTE | 2017-02-13 04:50 | NUR ---
Significant Event: Patient is alert but continues to be slightly confused at times. He continues to be impulsive and does not use call light appropriately. Cooperative with cares. At shift change, he was going back and forth from sinus rhythm to atrial flutter. Dr. Hicks was notified and he ordered an additional 20 mEq PO KCl. Patient remained in sinus rhythm throughout the night until around 0400 when he went into atrial flutter again for about 2 minutes and has been in sinus rhythm since then. AM labs pending. [place] given x1 with relief. Other vital signs are stable. He is on room air. Requires frequent reinforcement on using sternal precautions with his heart hugger. Good UOP. Walter drain still in place with 30 mL serosanguinous drainage out. Follow up: Continue to monitor heart rhythm.
[2017-02-13 05:51] LABS: BASOPHIL # 0.1 K/uL (0.0-0.2); BASOPHIL % 0.6 %; EOSINOPHIL # 0.2 K/uL (0.0-0.5); HEMATOCRIT 29.7 % (37.0-53.0); HEMOGLOBIN 10.1 g/dL (11.0-16.0); IMMATURE GRANULOCYTE # 0.1 K/uL (0.0-0.3); IMMATURE GRANULOCYTE % 0.7 %; LYMPHOCYTE # 1.7 K/uL (0.8-4.0); LYMPHOCYTE % 16.3 %; MCH 33.1 pg (27.0-34.0); MCV 97.4 fl (83.0-98.0); MONOCYTE # 1.3 K/uL (0.0-1.0); MONOCYTE % 12.5 %; MPV 9.7 fl (9.4-12.4); NEUTROPHIL # (ANC) 7.2 K/uL (1.4-9.0); NEUTROPHIL % 67.9 %; NRBC % 0 /100WBC (0-0.00); PLATELET COUNT 260 K/uL (150-450); RBC 3.05 M/uL (3.50-5.50); RDW-CV 12.5 % (11.9-14.6); WBC 10.6 K/uL (4.0-11.0)
[2017-02-13 06:17] LABS: ALBUMIN 2.8 gm/dL (3.5-5.0); ANION GAP 14.8 (10.0-19.0); BLOOD UREA NITROGEN 20 mg/dL (6-24); CALCIUM 8.4 mg/dL (8.5-10.5); CHLORIDE 99 mMol/L (96-110); CO2 26 mMol/L (22-32); CREATININE 0.9 mg/dL (0.6-1.3); ESTIMATED GFR (MDRD EQUATION) > 60; PHOSPHORUS 3.1 mg/dL (2.5-4.9); POTASSIUM 3.8 mMol/L (3.7-5.1); SODIUM 136 mMol/L (135-145)
--- NOTE | 2017-02-13 19:32 | NUR ---
Significant Event: A/OX3. [id number]. P-70-80s. Afebrile. Room air. SR with BBB and at times converts to afib longest run was 2 min of afib/flutter this shift. Sternum incision BELT AND LINK ASSEMBLY SUPERVISOR. Walter drain discontinued. R) harvest sites x3. Some blistering to R) knee site noted, MD notified. Patient needs reminders to use sternal precautions. Up with 1A/walker.
--- NOTE | 2017-02-14 05:08 | NUR ---
Significant Event: PATIENT A/O X 3, COOPERATIVE WITH CARES. VSS. RA. 1 NORCO GIVEN AT 0216 FOR PAIN. MUCINEX GIVEN PER BID PRN ORDER FOR PHLEM. COUGHING UP CLEAR/CREAM COLORED MUCUS. RELIEF NOTED. STERNUM REGIONAL PROJECT MANAGER, EDGES APPROXIMATED. CT SITE DRESSING C/D/I. UP WITH 1 ASSIST. STANDING WEIGHT TAKEN. PATIENT RESTED WELL AFTER MEDS. PATIENT REPORTED BM, NOT OBSERVED. Follow up: CONTINUE TO MONITOR PER PLAN OF CARE.
[2017-02-14] MEDS ORDERED: CORDARONE,PACE200 MG PO ×2 (09:13→09:14)
[2017-02-14] MEDS ORDERED: ASPIRIN LO-DOSE81 MG PO (09:15)
[2017-02-14] MEDS ORDERED: LIPITOR40 MG PO (09:16)
[2017-02-14] MEDS ORDERED: COREG12.5 MG PO (09:24)
[2017-02-14] MEDS ORDERED: COLACE100 MG PO (09:26)
[2017-02-14] MEDS ORDERED: PLAVIX75 MG PO (09:26)
[2017-02-14] MEDS ORDERED: MIRALAX17 GM PO (09:28)
[2017-02-14] MEDS ORDERED: KCL - MICRO-K10 MEQ PO (09:30)
[2017-02-14] MEDS ORDERED: NORCO 5-325 TA1 EACH PO (09:30)
[2017-02-14] MEDS ORDERED: MUCINEX1200 MG PO (09:32)
[2017-02-14] MEDS ORDERED: THERAGRAN-M1 TAB PO (09:33)
[2017-02-14] MEDS ORDERED: BUMETANIDE2 MG PO (09:34)
--- NOTE | 2017-02-14 10:08 | NUR ---
Call from Breanna Burrows that they are planning on releasign Jose to home today and she just wanted to make sure that he didn't have any needs upon discharge. I let her know that I had talked with Jose, his and his daughter the other day and the plan was home with no needs identified at that time. Breanna states that when she talked with his ravin this morning that insurance had called her and stated that they would be lining up HHC for him when he gets home. Per Breanna, told them that that was fine and Breanna was also fine with this. No other questions, needs or concerns. Will continue to follow and assist.
--- NOTE | 2017-02-14 10:09 | NUR ---
SPOKE W/ REGARDING CARDIAC DIET FOR HOME. CONFIRMED WHAT PT HAD REPORTED; THEY WATCH FAT AND SODIUM AND EAT LOTS OF FRUITS AND VEGETABLES. ENCOURAGED TO CALL W/ QUESTIONS NEEDED.
--- NOTE | 2017-02-14 13:31 | NUR ---
DISM. NOTE: REVIEW OF HOME MEDS AND NEW MEDS WITH HANDOUTS AND SIDE EFFECTS DISCUSSED. PRESCRIPTIONS GIVEN. DIET/ ACTIVITY FOLLOW UP APPT. INSTRUCTED ON POST OPEN HEART. PATIENT AND VOICED UNDERSTANDING.
== END 2017-02-14 13:00 | disposition disaster alternative care site (69) | DRG 233 ==
LOC: GPCU 10:25 → UNDOADMIN 10:25 → GPCU 11:00 → GICU 11:00 → GPCU 02-11 10:18
PROVIDERS: Hospitalist; Nurse Practitioner Women's Health; Thoracic Surgery (Cardiothoracic Vascular Surgery); ADMIT Internal Medicine Interventional Cardiology
PROC: B543ZZA Ultrasonography of Right Jugular Veins, Guidance (ICD-10-PCS; principal; 2017-02-08)
PROC: 021 Heart and Great Vessels, Bypass (ICD-10-PCS; principal; 2017-02-08)
PROC: 03HC33Z Insertion of Infusion Device into Left Radial Artery, Percutaneous Approach (ICD-10-PCS; principal; 2017-02-08)
PROC: 05HM33Z Insertion of Infusion Device into Right Internal Jugular Vein, Percutaneous Approach (ICD-10-PCS; principal; 2017-02-08)
PROC: 4A023N7 Measurement of Cardiac Sampling and Pressure, Left Heart, Percutaneous Approach (ICD-10-PCS; principal; 2017-02-08)
PROC: B2111ZZ Fluoroscopy of Multiple Coronary Arteries using Low Osmolar Contrast (ICD-10-PCS; principal; 2017-02-08)
DX: I21.3 ST elevation (STEMI) myocardial infarction of unspecified site (principal); J96.01 Acute respiratory failure with hypoxia; J98.11 Atelectasis; E87.6 Hypokalemia; I10 Essential (primary) hypertension; I25.10 Atherosclerotic heart disease of native coronary artery without angina pectoris; Z72.0 Tobacco use
CPT/HCPCS: C1887; J0171; J0282; J0690; J1100; J1170; J1327; J1644; J1650; J1885; J1940; J2150; J2250; J2270; J2405; J2720; J3010; J3475; J3480; J3490; J7040; J7050; J7060; J7121; P9045; P9047

== ENCOUNTER 2017-03-01 15:30 | Observation (INO) | payer OTHER ==
[~2017-03-01] VITALS: Ht 177.8 cm; Wt 93.1 kg
--- NOTE | ~2017-03-01 | ER ---
PATIENT'S NAME: RIZWANA CUNNINGHAM [facility] AGE: 61 Y [address] ROOM: [place] [address] LOCATION: GPCU ADMIT DATE: 03/01/2017 ER/Outpatient Report DISCHARGE DATE: FAMILY PHYSICIAN: NACHO HOWE ATTENDING PHYSICIAN: Felipe Hicks CHIEF COMPLAINT: Presyncope with low blood pressure. HPI: The patient is 3 weeks status post 5-vessel CABG for STEMI with persistent chest pain. He was in clinic today to see Dr. Hicks. He was noted to have very low blood pressure at that time with systolic blood pressures around 85 per report. They tried to draw his blood and at that time, he became altered, belligerent, and combative, which lasted 5-7 minutes, then resolved spontaneously. He otherwise feels okay. His does not note any significant changes to his normal baseline now. He states he did take his medication new doses just before he was seen in clinic. The patient was within the hospital billing complex; however, based on location, EMS did go retrieve the patient, brought him to the emergency department. He denies any chest pain or shortness of breath associated with the episode. Nothing had been tried to make him better. EKG was obtained prior to arrival. PAST MEDICAL HISTORY: As noted above, in addition to hypertension, pneumonia, and high cholesterol with multiple surgeries. MEDICATIONS: Documented on the record. ALLERGIES: NO KNOWN MEDICAL ALLERGIES. ROS: All systems reviewed and negative except as noted in the HPI. PHYSICAL EXAMINATION: VITAL SIGNS: Blood pressure is 96/61, pulse is 71, respiratory rate is 16, temperature 96.7, SpO2 is 98% on room air. GENERAL: Age-appropriate male, no obvious pain or distress, resting comfortably on the exam table. NEURO: The patient is awake, very unusual mannerisms, but otherwise appropriate. He is alert, engages otherwise appropriately. Normal sensorium. GCS is 15. HEENT: Normocephalic and atraumatic. Eyes are PERRL. Oropharynx is clear. PATIENT'S NAME: RIZWANA CUNNINGHAM [facility] AGE: 61 Y [address] ROOM: [place] [address] LOCATION: GPCU ADMIT DATE: 03/01/2017 ER/Outpatient Report DISCHARGE DATE: FAMILY PHYSICIAN: NACHO HOWE ATTENDING PHYSICIAN: Felipe Hicks NECK: Supple. Trachea is midline. CHEST: Heart is regular. Rate and rhythm on the slower side in the 60s. No obvious murmurs. LUNGS: Grossly clear to auscultation bilateral. No rhonchi, wheezes, or rales. ABDOMEN: Soft, nontender, and nondistended. No rebound or guarding. BACK: Normal to inspection and palpation. EXTREMITIES: Warm and well-perfused. No obvious abnormalities. SKIN: The sternal wound and epigastric drain wounds appeared to be healing well. There is a slight draining wound behind the left knee at the harvest site with some minimal discharge. No definite abscess or infection. LABORATORY DATA: CMS: Grossly unremarkable for electrolyte abnormalities. Sodium 136, potassium 3.9, BUN is 24, creatinine is 1. GFR is greater than 60. Alkaline phosphatase is 150. Troponin is 0.044, BNP is 888. WBC of 14.0, 10.1 neutrophils, hemoglobin is 9.8, platelets of 694. INR is 0.95, lactate is 1.6. Procalcitonin is below detectable threshold. EKG reveals sinus rhythm. Recent infarct with no evidence of active ischemia per my read with delayed R- wave progression. Also, first-degree heart block. Otherwise, grossly unremarkable. Chest x-ray per my review has no significant intrathoracic abnormalities. IMPRESSION: 1. Presyncope. 2. Persistent relative hypotension. 3. Three weeks, status post 5-vessel CABG. EMERGENCY DEPARTMENT COURSE: The patient was seen and evaluated as above. He was given 1 L of normal saline with marked improvement in his blood pressures after 900 mL. He did have several blood pressures in mid 80s. He had no other symptoms and otherwise felt fine and was at his baseline. However, given the proximity to open thoracic surgery, as well as his unusual episode, we will bring him in under the care of Dr. Hicks for observation and probable medication adjustment. I think the patient likely had low blood pressure and slow heart rate that was medication induced, which was confounded by vasovagal event upon trying to draw his blood. However, with his close proximity to surgery, I would like to make sure his safety at this time. All questions were answered and the patient was admitted without further issue. KAROLINA WRIGHT MD PATIENT'S NAME: RIZWANA CUNNINGHAM [facility] AGE: 61 Y [address] ROOM: [place] [address] [facility] ADMIT DATE: 03/01/2017 ER/Outpatient Report DISCHARGE DATE: FAMILY PHYSICIAN: NACHO HOWE ATTENDING PHYSICIAN: Felipe Hicks/noy /[id number] d: 03/02/17 0734 t: 03/05/17 2213, OUTPATIENT REPORT
[~2017-03-01 15:30] MED LIST changes: -TUMS REGULAR ST1 TAB PO
[2017-03-01 16:55] LABS: BASOPHIL # 0.1 K/uL (0.0-0.2); BASOPHIL % 0.6 %; EOSINOPHIL # 0.5 K/uL (0.0-0.5); EOSINOPHIL % 3.3 %; HEMATOCRIT 29.7 % (37.0-53.0); HEMOGLOBIN 9.8 g/dL (11.0-16.0); IMMATURE GRANULOCYTE # 0.1 K/uL (0.0-0.3); LYMPHOCYTE # 2.4 K/uL (0.8-4.0); LYMPHOCYTE % 17.1 %; MCH 31.7 pg (27.0-34.0); MCV 96.1 fl (83.0-98.0); MONOCYTE # 0.8 K/uL (0.0-1.0); MONOCYTE % 5.9 %; MPV 8.7 fl (9.4-12.4); NEUTROPHIL # (ANC) 10.1 K/uL (1.4-9.0); NEUTROPHIL % 72.1 %; NRBC % 0 /100WBC (0-0.00); RBC 3.09 M/uL (3.50-5.50); RDW-CV 13.1 % (11.9-14.6)
[2017-03-01 16:56] LABS: PLATELET COUNT 694 K/uL (150-450)
[2017-03-01 17:14] LABS: ALK PHOS 150 IU/L (33-138); ALT 38 IU/L (12-78); ANION GAP 11.9 (10.0-19.0); AST 24 IU/L (10-40); BLOOD UREA NITROGEN 24 mg/dL (6-24); CHLORIDE 100 mMol/L (96-110); CO2 28 mMol/L (22-32); ESTIMATED GFR (MDRD EQUATION) > 60; POTASSIUM 3.9 mMol/L (3.7-5.1); SODIUM 136 mMol/L (135-145); TOTAL PROTEIN 6.5 g/dL (6.0-8.4)
[2017-03-01 17:15] LABS: INR - (THERAPEUTIC) 0.95 (0.92-1.07); PTT 25 SECONDS (25-32); TOTAL BILIRUBIN 0.2 mg/dL (0.0-1.5)
[2017-03-01] MEDS ORDERED: TUMS REGULAR ST1 TAB PO (20:18)
--- NOTE | 2017-03-02 05:34 | NUR ---
Significant Event: Patient has been alert/oriented x3. Vital signs are stable. On room air. He has denied feeling lightheaded, no dizziness, and no nausea. SBP's have been 106-127. HR's 70-80's, sinus rhythm. [place] given x1 last night for incisional pain, with relief. at bedside. Follow up: Continue to monitor. Patient might be dismissed today.
[2017-03-02 07:30] LABS: BLOOD UREA NITROGEN 17 mg/dL (6-24); CALCIUM 8.2 mg/dL (8.5-10.5); CHLORIDE 105 mMol/L (96-110); CO2 24 mMol/L (22-32); CREATININE 0.9 mg/dL (0.6-1.3); ESTIMATED GFR (MDRD EQUATION) > 60; PHOSPHORUS 3.3 mg/dL (2.5-4.9); SODIUM 138 mMol/L (135-145)
[2017-03-02 07:33] LABS: HEMATOCRIT 30.3 % (37.0-53.0); HEMOGLOBIN 10.1 g/dL (11.0-16.0); MCH 31.9 pg (27.0-34.0); MCHC 33.3 gm/dL (32.0-36.5); RBC 3.17 M/uL (3.50-5.50); WBC 10.3 K/uL (4.0-11.0)
[2017-03-02 07:34] LABS: LYMPHOCYTE # 2.9 K/uL (0.8-4.0); LYMPHOCYTE % 28.5 %; MCV 95.6 fl (83.0-98.0); MONOCYTE # 0.7 K/uL (0.0-1.0); NEUTROPHIL # (ANC) 6.1 K/uL (1.4-9.0); NEUTROPHIL % 59.1 %; NRBC % 0 /100WBC (0-0.00); PLATELET COUNT 528 K/uL (150-450); RDW-CV 13.2 % (11.9-14.6)
[2017-03-02 07:35] LABS: BASOPHIL # 0.1 K/uL (0.0-0.2); BASOPHIL % 0.7 %; EOSINOPHIL # 0.4 K/uL (0.0-0.5); IMMATURE GRANULOCYTE # 0.1 K/uL (0.0-0.3); MONOCYTE % 6.7 %
--- NOTE | 2017-03-02 12:39 | NUR ---
Patient dismissed to home with . Both patient and deny question or concern of dismissal. BPs stable. Med changes discussed at length and Dr Hicks also went over meds thouroughly with patient and . IV dc'd.
== END 2017-03-02 12:44 | disposition disaster alternative care site (69) ==
LOC: GMED 15:30 → GPCU 18:13
PROVIDERS: Emergency Medicine; ADMIT Thoracic Surgery (Cardiothoracic Vascular Surgery)
DX: E86.1 Hypovolemia (principal); I21.3 ST elevation (STEMI) myocardial infarction of unspecified site; I25.810 Atherosclerosis of coronary artery bypass graft(s) without angina pectoris; I10 Essential (primary) hypertension; I95.89 Other hypotension; E78.5 Hyperlipidemia, unspecified; R55 Syncope and collapse; F17.210 Nicotine dependence, cigarettes, uncomplicated; Z95.1 Presence of aortocoronary bypass graft; Z98.52 Vasectomy status; Z90.49 Acquired absence of other specified parts of digestive tract
CPT/HCPCS: G0378; G0379; J7030

== ENCOUNTER → 2017-03-01 | Outpatient (CLI) | payer OTHER ==
[~2017-03-01] MED LIST: ASPIRIN LO-DOSE81 MG PO; BUMETANIDE2 MG PO; COLACE100 MG PO; CORDARONE,PACE200 MG PO; COREG12.5 MG PO; HYDRODIURIL25 MG PO; KCL - MICRO-K10 MEQ PO; LIPITOR40 MG PO; MIRALAX17 GM PO; MUCINEX1200 MG PO; MULTIPLE VITAM1 EACH PO; NORCO 5-325 TA1 EACH PO; PLAVIX75 MG PO; PRINIVIL (ZESTRI5 MG PO; THERAGRAN-M1 TAB PO; TUMS REGULAR ST1 TAB PO; TYLENOL EXTRA500 MG PO
== END | disposition disaster alternative care site (69) ==
LOC: GAMB 15:09
DX: I95.9 Hypotension, unspecified (principal); R61 Generalized hyperhidrosis; R11.0 Nausea
CPT/HCPCS: A0425; A0427